=== PATIENT | female | born 1955 | race Caucasian/White ===

== ENCOUNTER → 2021-05-22 | Outpatient (CLI) | payer OTHER ==
[~2021-05-22] MED LIST: EVISTA60 MG PO; HYDROCHLOROTHIA25 MG PO; NORVASC 5 MG TAB5 MG PO; PERCOCET 5-3251 EACH PO; VENLAFAXINE HC150 MG PO
== END ==
LOC: MAMO 11:19
DX: Z12.31 Encounter for screening mammogram for malignant neoplasm of breast (principal)
CPT/HCPCS: 77063; 77067

== ENCOUNTER → 2021-07-16 | Outpatient (CLI) | payer OTHER | LOC: KOH-I 11:48 | DX: M25.562 Pain in left knee (principal) | CPT/HCPCS: 73562 ==

== ENCOUNTER → 2022-01-31 | Outpatient (CLI) | payer OTHER ==
[2022-01-31 11:40] LABS: HEMOGLOBIN 14.7 gm/dl (12.3-15.3); RED BLOOD COUNT 4.77 M/UL (4.00-5.10); WHITE BLOOD COUNT 8.8 K/UL (4.5-11.0)
[2022-01-31 12:34] LABS: BUN/CREATININE RATIO 17 (0-10)
== END ==
LOC: LAB 11:02
PROVIDERS: Physician Assistant
DX: R19.7 Diarrhea, unspecified (principal)
CPT/HCPCS: 36415; 74022; 80048; 80076; 82150; 83690; 85025

== ENCOUNTER → 2022-04-05 | Day surgery (SDC) | payer OTHER ==
[~2022-04-05] MED LIST changes: +LAMICTAL150 MG PO; +NEURONTIN600 MG PO; +POTASSIUM CHLO20 MEQ PO; +PRIMIDONE50 MG PO; +PROZAC 20 MG CA20 MG GT; +PROZAC20 MG PO; +QUETIAPINE FUMA25 MG PO; +RALOXIFENE HCL60 MG PO
== END | disposition home or self-care (01) ==
LOC: OR 05:32
DX: D50.9 Iron deficiency anemia, unspecified (principal); F31.9 Bipolar disorder, unspecified; E78.5 Hyperlipidemia, unspecified; I10 Essential (primary) hypertension; M81.0 Age-related osteoporosis without current pathological fracture; Z88.8 Allergy status to other drugs, medicaments and biological substances; Z79.899 Other long term (current) drug therapy
CPT/HCPCS: J2704

== ENCOUNTER → 2022-05-27 | Outpatient (CLI) | payer OTHER | LOC: MAMO 11:13 | DX: Z12.31 Encounter for screening mammogram for malignant neoplasm of breast (principal) | CPT/HCPCS: 77063; 77067 ==